=== PATIENT | male | born 1985 | race Caucasian/White ===

== ENCOUNTER 2024-01-11 00:48 | Emergency (ER) | payer MEDICAID ==
[~2024-01-11] VITALS: Ht 177.8 cm; Wt 73.0 kg
[2024-01-11 00:55] VITALS: O2SAT 98
[2024-01-11] MEDS: ONDANSETRON 4MG ODT PO ONE (02:07)
[2024-01-11] MEDS: KETOROLAC 15MG/ML VIAL IM ONE (02:07)
[2024-01-11] MEDS ORDERED: NAPR-1176 MT (03:22)
[2024-01-11] MEDS: DEXAMETHASONE 10 MG/ML VIAL PO ONE (04:27)
[2024-01-11 04:30] VITALS: BP 108/62; PULSE 70; RESP 18; TEMP 98.2
== END 2024-01-11 04:40 | disposition home or self-care (01) ==
LOC: ER 00:57
DX: R51.9 Headache, unspecified (principal); F14.90 Cocaine use, unspecified, uncomplicated; F12.90 Cannabis use, unspecified, uncomplicated; F17.200 Nicotine dependence, unspecified, uncomplicated; Z88.0 Allergy status to penicillin; Z88.8 Allergy status to other drugs, medicaments and biological substances; Z98.890 Other specified postprocedural states
CPT/HCPCS: 96372; 99285; Q0162; J1100; J1885; Z7610